=== PATIENT | male | born 1980 | race Caucasian/White ===

== ENCOUNTER 2018-08-10 08:24 | Inpatient (IN) ==
[2018-08-10] MEDS ORDERED: CeFAZolin Syr 3,000MG/30 ML 3,000 MG/30 ML SYRINGE IVPB ONE (08:40)
[2018-08-10] MEDS ORDERED: Ringers Solution, Lactated 1,000 ML IVC SCH (08:45)
--- NOTE | 2018-08-10 08:58 | Anesthesia Evaluation PreOp ---
Date of Encounter: 08/10/18 Time of Encounter: 09:00 - Past History Planned Operation: perc. 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 HX Other Medical History: GERD, Other (morbid obesity, BMI 53) Anesthesia History: No Prior Anesthetic Complications, Past Anesthesia (only prior surgery has been carpal tunnel surgery) Alcohol Use: none Drug use: none Medications and Allergies Citalopram [CeleXA] 20 mg PO DAILY 05/05/15 [History] Loratadine [Claritin] 10 mg PO DAILY #30 tablet 07/21/15 [Rx] hydroCHLOROthiazide [Hydrochlorothiazide] 25 mg PO DAILY #20 tablet 01/06/16 [Rx ] Simvastatin [Zocor] 40 mg PO DAILY 06/28/16 [History] Aspirin/Acetaminophen/Caffeine [Excedrin Migraine Caplet] 1 tab PO DAILY PRN 09/23/16 [History] Omeprazole [PriLOSEC] 20 mg PO DAILY 09/23/16 [History] Cephalexin [Keflex] 500 mg PO QID #40 capsule 04/13/17 [Rx] Sulfamethoxazole/Trimeth DS [Bactrim DS] 1 each PO BID #20 tablet 04/13/17 [Rx] Hyoscyamine SL [Levsin SL] 0.125 mg SL Q4HR #14 tab.subl 04/16/17 [Rx] Ondansetron ODT [Zofran ODT] 4 mg SL Q4HR #14 tab.rapdis 04/16/17 [Rx] Allergy/AdvReac Type Severity Reaction Status Date / Time lisinopril Allergy Swelling Verified 07/31/18 16:18 of Lip/Tongue/Throat - Meds/Allergy Pre-op Review Medications Reviewed: Yes Allergies Reviewed: Yes Beta Blockers on Current Med List: No Anesthesia Results - Imaging EKG: image reviewed (sinus rhythm) Anesthesia Exam Selected Entries 08/10/18 08:49 Temperature 99.7 F H Pulse Rate 86 Respiratory Rate 18 Blood Pressure 154/94 O2 Sat by Pulse Oximetry 96 Weight: 163 kg BMI 53 NPO (# of Hours): over 8 hours - HEENT Pupil (Motor): Pupils equal Mallampati: II Teeth: Normal Oral Opening: Greater than 3 - Cardiac Rhythm: Regular Murmur: None - Pulmonary Breath Sounds: bilateral Clear Respiratory Effort: Symmetrical Anesthesia Assess/Plan ASA Score: 3 Level of consciousness: Cooperative Anesthetic Plan: General Monitoring Plan: Standard Monitors Recovery Plan: PACU (Discussed GA, ET intubation. Agreed to proceed.)
[2018-08-10] MEDS ORDERED: Acetaminophen IV 1,000 MG/100 ML INFUS..BTL IVPB ONE (09:00)
--- NOTE | 2018-08-10 09:14 | History & Physical Report ---
Date of Encounter: 08/10/18 Time of Encounter: 09:13 24 Hour HP Update - Instructions Instructions: If the History and Physical is less than 30 days old and was completed prior to A.M. admission and or procedure and has NOT been updated on calendar day of procedure please complete this update prior to performing procedure. - Update Patient reports changes in Medical Condition: No Changes in examination, assessment, or condition: No Changes in Medication: No Preop tests/diagnostics Reviewed: Yes Surgery Remains Indicated: Yes Consent for Planned Operative Procedure(s) Verified: Yes - Pre-Operative Checklist Preoperative Checklist Indicated: Yes Prophylactic Antibiotic Ordered: Yes Home Medications Include Beta Katie: No Is VTE Prophylaxis Indicated?: Yes
[2018-08-10] MEDS ORDERED: *HR* Propofol 200 MG/20 ML VIAL IVP ONE ×2 (09:34→16:15)
[2018-08-10] MEDS ORDERED: *HR* FentaNYL (PF) 100 MCG/2 ML VIAL ONE ×2 (09:34→09:39)
[2018-08-10] MEDS ORDERED: *HR* Midazolam HCl 2 MG/2 ML VIAL ONE (09:34)
[2018-08-10] MEDS ORDERED: *HR* Rocuronium Bromide 50 MG/5 ML VIAL ONE ×4 (09:38→14:18)
[2018-08-10] MEDS ORDERED: Lidocaine -MPF 2% 2 ML VIAL ONE (09:38)
[2018-08-10] MEDS ORDERED: Ondansetron 4 MG/2 ML VIAL ONE ×2 (09:38→16:27)
[2018-08-10] MEDS ORDERED: Lidocaine 1% 20 ML MDV ONE (11:21)
[2018-08-10] MEDS ORDERED: *HR* HYDROMORPHONE 2 MG/ML VIAL ONE ×2 (12:52→15:44)
[2018-08-10] MEDS ORDERED: Mannitol 25% vial 12.5 GM/50 ML VIAL ONE ×2 (12:55→12:57)
[2018-08-10] MEDS ORDERED: Albumin Human 5% 25.0 GM/500 ML VIAL ONE (14:43)
[2018-08-10] MEDS ORDERED: EPHEDrine 50 MG/ML VIAL ONE (14:52)
[2018-08-10] MEDS ORDERED: Neostigmine Methylsulfate 3 MG/3 ML SYRINGE ONE (15:50)
--- NOTE | 2018-08-10 16:21 | Operative Note ---
Date of procedure: 08/10/18 Pre-op diagnosis: Left renal mass Post-op diagnosis: same Procedure: Left robotic partial nephrectomy Implants: 19-Bermudian Edmundo drain Agarwal catheter Complications: none Anesthesia: GETA Surgeon: Kane Briceno Was there an case management assistant present: Yes Milled Lumber Grader: Alexx Cruz Estimated blood loss (cc): 1,000 Specimen: left renal mass Condition: stable Disposition: PACU Procedure in Detail: Indications: Nilsa is a 38-year-old man who presents with a left renal mass. He elected to undergo a left robotic partial nephrectomy. He was informed of the risks of the procedure which include but are not limited to bleeding, infection, injury to other structures, need for further procedures, urine leak, bowel injury, need for complete nephrectomy, need for open conversion, and the risk of anesthesia. He is willing to proceed. Procedure After informed consent was obtained the patient was brought back to the operating room and placed in the supine position. A timeout was performed. Gen. anesthesia was then administered and an endotracheal tube was placed. Appropriate IV access and arterial lines were obtained. A Agarwal catheter was then placed. He was then placed in the flank position. His left side was up. All pressure points were padded. He was well secured to the table. He was then prepped and draped in the usual sterile fashion. We then marked out our incisions along the lateral border of the rectus abdominis muscle. Port sites were located at the costal margin extending down towards the left lower quadrant 4. An 8 mm incision was made at the site located superior and lateral to the umbilicus. The Veress needle was introduced. 2 clicks were heard. It passed the water drop test. Insufflation was then initiated. Pressures were low consecutively. The abdomen was insufflated. Once the pressure was up to 15, we inserted the 8 mm robotic portr. Entry was obtained into the abdomen. The bowel was surveyed below and there is no evidence of bowel injury. Robotic ports were then inserted superior and inferior to the camera port. A 12 mm port was placed for the case management assistant inferior to the umbilicus. The air seal device was used. The robot was docked. The bowel was reflected off the kidney along the white line of Toldt. The kidney was lifted anteriorly with the fourth arm. Dissection proceeded to the area of pulsation near the hilum. The artery was identified superior to the vein. This was dissected out carefully. The vein was identified as well. Attention was then turned to mobilize the kidney. The kidney was dissected out from the lateral sidewall outside of gerota's fascia. Once the kidney was mobilized and incision was made along Gerota's fascia until the kidney was seen. The mass was identified lateral and posteriorly on the kidney. I then turned my attention to the fat overlying the renal mass. This was dissected off the kidney. The kidney was mobilized within the Gerota's fat to expose the margin. The tumor was quite exophytic. The area of excision was scored out. I utilized a small amount of ICG to identify the normal parenchyma. Mannitol was then given. The renal artery was clamped using the bulldog. The tumor was excised sharply using cold scissors. There were 2 large venous sinuses which were encountered during the removal of the tumor which hemorrhaged significantly. Once the tumor was removed I utilized a 3-O V-LOC x 2 to close the venous sinuses. Hemostasis was then achieved along these vessels. I then closed the capsule to itself using 0 V-LOC suture in an interrupted fashion with the sliding clip renorrhaphy technique. Hemostasis was good. The bulldog clamp was removed. 38 minutes of warm ischemia time was noted. Once the bulldog clamp was removed and FloSeal was applied to the resection area. Hemostasis seemed adequate. T The kidney was then brought back into its normal anatomic location using O V-LOC suture in a running fashion to bring sure of his fascia back to itself. A 19 B[place]udian Edmundo drain was then placed. This was secured to the skin using a nylon suture. The specimen was removed in a specimen bag. The specimen was extracted through the assistance port after opening the skin and fascia slightly with electrocautery. All the ports were then removed. The fascia of the extraction site was closed in a [id number] fashion using an 0 Vicryl suture. The wounds were closed using 4-0 Monocryl suture. Local anesthetic was infiltrated into the wounds. The abdomen was then washed and dried and Dermabond was applied to the wounds. The patient was then awakened from general anesthesia and brought to recovery room in good condition. All sponge, needle, and instrument counts were correct.
[2018-08-10] MEDS ORDERED: *HR* HYDROmorphone (PF) 1 MG/ML SYRINGE IVP PRN (16:46)
[2018-08-10] MEDS ORDERED: *HR* Promethazine 25 MG/ML VIAL IVP PRN (16:47)
[2018-08-10] MEDS ORDERED: *HR* Promethazine 25 MG/ML VIAL ONE (16:49)
--- NOTE | 2018-08-10 17:23 | Anesthesia Evaluation Post Op ---
Date of Encounter: 08/10/18 Time of Encounter: 17:23 - Vital Signs Vital Signs: Last Vital Signs Temp 97.6 F 08/10/18 17:07 Pulse 103 08/10/18 17:07 Resp 18 08/10/18 17:07 BP 128/69 08/10/18 17:07 Pulse Ox 93 08/10/18 17:07 - Lungs Lungs: Clear Ascult./Percussion - Airway Airway: Non-obstructed - Cardiovascular Regular Rate - Mental Status Mental Status: Alert & Oriented, Answers Appropriately - Pain Pain Scale: 4 - Nausea Vomiting Nausea Vomiting: Not Present - Hydration Hydration: NPO - Discharge PostOp Status: Transfer Patient to floor
[2018-08-10] MEDS ORDERED: *HR* Dextrose 50 % in Water (Syg) 50 ML SYRINGE IVP PRN (18:09)
[2018-08-10] MEDS ORDERED: D5% in Water 1,000 ML IVC PRN (18:09)
[2018-08-10] MEDS ORDERED: OXYCODONE Oral CONC 10 MG/0.5 ML ORAL.SYG SL PRN (18:09)
[2018-08-10] MEDS ORDERED: Dextrose Gel 15 GM/37.5 ML TUBE PO PRN ×2 (18:09)
[2018-08-10] MEDS ORDERED: Naloxone 0.4 MG/ML INJ IVP PRN (18:09)
[2018-08-10] MEDS: 0.9 % Sodium Chloride 1,000 ML IVC SCH (18:37)
[2018-08-10] MEDS: Insulin LISPRO 300 UNITS/3 ML VIAL SQ SCH (18:53)
[2018-08-10] MEDS: Ondansetron 4 MG/2 ML VIAL IVP PRN (20:01)
[2018-08-10] MEDS: ceFAZolin sodium 3,000 MG in 0.9 % Sodium Chloride 100 ML IVPB SCH (20:49)
[2018-08-10] MEDS: *HR* OxyCODONE Immed Rel 5 MG TABLET PO PRN (23:58)
[2018-08-11] MEDS: 0.9 % Sodium Chloride 1,000 ML IVC SCH ×2 (02:58→10:55)
[2018-08-11] MEDS: Acetaminophen 325 MG TABLET PO PRN ×2 (03:03→20:44)
[2018-08-11] MEDS: ceFAZolin sodium 3,000 MG in 0.9 % Sodium Chloride 100 ML IVPB SCH (04:23)
--- NOTE | 2018-08-11 07:27 | Urology Progress Note ---
Date of Encounter: 08/11/18 Time of Encounter: 07:25 - Assessment and Plan (1) Renal mass, left Current Visit: Yes Status: Acute Assessment and plan: Postoperative day #1 status post left robotic partial nephrectomy. 1. Continue current pain management. 2. Incentive spirometry 10/h. 3. Continue with clear liquids. Await return of bowel function. 4. Continue LEE drain. Await lab results from this morning. 5. Discontinue Agarwal catheter. 6. PT/OT consultation. 7. Continue omeprazole for GI prophylaxis. We will hold off on subcutaneous heparin secondary to bleeding risk. Continue SCDs. 8. Anticipate remaining in hospital today. We will change status to observation. Progress Note Narrative: Doing well today. Pain is controlled. He is having some discomfort in the ri ght hip which is likely associated with positioning. Mild low-grade temperatures. He is doing incentive spirometry. He is tolerating water intake. He denies flatus. Objective Initial Vital Signs Temp Pulse Resp BP Pulse Ox 99.1 F 86 18 154/93 96 08/10/18 08:49 08/10/18 08:49 08/10/18 08:49 08/10/18 08:49 08/10/18 08:49 - General physical appearance Present: well developed, well nourished, no distress - Respiratory Present: normal respiratory effort - Abdomen Present: soft (Appropriately tender. Incisions are clean, dry, intact. LEE was sanguinous drainage.) - Genitourinary Present: normal penis with no external lesions (Agarawl catheter in position with clear urine.) Urine Appearance: Present: Clear - Integumentary Present: no rash - Musculoskeletal Present: normal posture, other (No ecchymosis noted along the right hip.) Consult Discharge Plan - Plan Referrals: Meri Cantu [Primary Care Provider] -
[2018-08-11 07:29] LABS: Basophils % 0.2 %; Hematocrit 34.1 % (37.5-50.1); Immature Granulocytes % 0.3 % (0-4); Lymphocytes % 17.8 %; Mean Corpuscular HGB Conc 32.3 g/dL (31.6-35.5); Mean Corpuscular Hemoglobin 27.7 pg (28.0-33.3); Mean Corpuscular Volume 85.9 fL (83.0-100.0); Mean Platelet Volume 9.5 fL (9.4-12.4); Monocytes % 9.2 %; Neutrophils # 8.1 K/mcL (1.6-8.9); Platelet Count 271 K/mcL (140-400); Red Blood Count 3.97 M/mcL (4.19-5.50); Red Cell Distribution Width 14.8 % (11.5-14.5); Segmented Neutrophils % 72.5 %
[2018-08-11] MEDS: Insulin LISPRO 300 UNITS/3 ML VIAL SQ SCH ×3 (07:39→17:04)
[2018-08-11 07:52] LABS: BUN/Creatinine Ratio 14 (6-26); Blood Urea Nitrogen 12 mg/dL (6-20); Calcium 8.7 mg/dL (8.6-10.3); Carbon Dioxide 28 mEq/L (23-29); Chloride 106 mEq/L (98-107); Glucose 133 mg/dL (70-105); Osmolality,Calculated 292 (280-300); Potassium 3.8 mEq/L (3.5-5.1); Sodium 140 mEq/L (136-145); eGFR For Non-African Americans > 60 (> 60)
[2018-08-11] MEDS: Loratadine 10 MG TABLET PO SCH (08:32)
[2018-08-11] MEDS: Losartan/HCTZ 50-12.5 TABLET PO SCH (08:32)
[2018-08-11] MEDS: *HR* OxyCODONE Immed Rel 5 MG TABLET PO PRN (10:55)
[2018-08-11] MEDS: Ondansetron 4 MG/2 ML VIAL IVP PRN (20:43)
[2018-08-12] MEDS: Acetaminophen 325 MG TABLET PO PRN ×3 (02:54→19:06)
[2018-08-12 07:05] LABS: Hematocrit 31.9 % (37.5-50.1); Hemoglobin 10.3 g/dL (12.9-16.9); Mean Corpuscular HGB Conc 32.3 g/dL (31.6-35.5); Mean Corpuscular Hemoglobin 28.1 pg (28.0-33.3); Mean Corpuscular Volume 86.9 fL (83.0-100.0); Mean Platelet Volume 9.6 fL (9.4-12.4); Platelet Count 222 K/mcL (140-400); Red Blood Count 3.67 M/mcL (4.19-5.50); Red Cell Distribution Width 14.9 % (11.5-14.5)
--- NOTE | 2018-08-12 07:07 | Urology Progress Note ---
Date of Encounter: 08/12/18 Time of Encounter: 07:05 - Assessment and Plan (1) Renal mass, left Current Visit: Yes Status: Acute Assessment and plan: 38-year-old man status post left robotic partial nephrectomy. Postoperative day #2. Patient had a low-grade temperature yesterday evening which is likely due to atelectasis. 1. Continue incentive spirometry and ambulation. 2. Await lab results this morning. 3. DC IV fluids. 4. Continue SCDs and resolved for prophylaxis. We will hold off on subcutaneous heparin secondary to the risk of bleeding. 5. Continue LEE for now. We will monitor its outputs. Drainage seems to be decreasing overnight. 6. Regular diet. 7. Will keep patient in the hospital today because of low-grade temperature. Progress Note Narrative: Postoperative day #2 status post left robotic partial nephrectomy. Patient had a temperature yesterday evening. He is tolerating diet. Pain is well- controlled. He is ambulating. Drain output was 290 yesterday. Objective Initial Vital Signs Temp Pulse Resp BP Pulse Ox 99.1 F 86 18 154/93 96 08/10/18 08:49 08/10/18 08:49 08/10/18 08:49 08/10/18 08:49 08/10/18 08:49 - General physical appearance Present: well developed, well nourished, no distress - Respiratory Present: normal respiratory effort - Abdomen Present: soft (Appropriately tender, incisions are clean, dry, and intact. LEE was sanguineous drainage. Dressings changed today.) - Genitourinary Present: normal penis with no external lesions - Integumentary Present: no rash - Musculoskeletal Present: normal posture - Labs 08/11/18 06:50 08/11/18 06:50 Diabetes panel 08/11/18 Range/Units 06:50 Sodium 140 (136-145) mEq/L Potassium 3.8 (3.5-5.1) mEq/L Chloride 106 (98-107) mEq/L Carbon Dioxide 28 (23-29) mEq/L BUN 12 (6-20) mg/dL Creatinine 0.86 (0.70-1.30) mg/dL Glucose 133 H (70-105) mg/dL Calcium 8.7 (8.6-10.3) mg/dL Calcium panel 08/11/18 Range/Units 06:50 Calcium 8.7 (8.6-10.3) mg/dL Pituitary panel 08/11/18 Range/Units 06:50 Sodium 140 (136-145) mEq/L Potassium 3.8 (3.5-5.1) mEq/L Chloride 106 (98-107) mEq/L Carbon Dioxide 28 (23-29) mEq/L BUN 12 (6-20) mg/dL Creatinine 0.86 (0.70-1.30) mg/dL Glucose 133 H (70-105) mg/dL Calcium 8.7 (8.6-10.3) mg/dL Adrenal panel 08/11/18 Range/Units 06:50 Sodium 140 (136-145) mEq/L Potassium 3.8 (3.5-5.1) mEq/L Chloride 106 (98-107) mEq/L Carbon Dioxide 28 (23-29) mEq/L BUN 12 (6-20) mg/dL Creatinine 0.86 (0.70-1.30) mg/dL Glucose 133 H (70-105) mg/dL Calcium 8.7 (8.6-10.3) mg/dL Consult Discharge Plan - Plan Referrals: Meri Cantu [Primary Care Provider] - (Unable to make follow up appointmet. Please call and schedule hospital follow up appointment for 7-10 days from date of discharge. )
[2018-08-12 07:23] LABS: BUN/Creatinine Ratio 13 (6-26); Blood Urea Nitrogen 10 mg/dL (6-20); Calcium 8.5 mg/dL (8.6-10.3); Carbon Dioxide 29 mEq/L (23-29); Chloride 106 mEq/L (98-107); Glucose 110 mg/dL (70-105); Osmolality,Calculated 292 (280-300); Potassium 3.5 mEq/L (3.5-5.1); Sodium 141 mEq/L (136-145); eGFR For Non-African Americans > 60 (> 60)
[2018-08-12] MEDS: *HR* OxyCODONE Immed Rel 5 MG TABLET PO PRN ×2 (09:00→21:19)
[2018-08-12] MEDS: Losartan/HCTZ 50-12.5 TABLET PO SCH (09:00)
[2018-08-12] MEDS: Loratadine 10 MG TABLET PO SCH (09:00)
[2018-08-12] MEDS: 0.9 % Sodium Chloride 1,000 ML IVC SCH ×2 (15:14→15:17)
[2018-08-13 06:27] LABS: Hematocrit 31.1 % (37.5-50.1); Hemoglobin 10.2 g/dL (12.9-16.9); Mean Corpuscular HGB Conc 32.8 g/dL (31.6-35.5); Mean Corpuscular Volume 85.4 fL (83.0-100.0); Mean Platelet Volume 9.4 fL (9.4-12.4); Platelet Count 231 K/mcL (140-400); Red Blood Count 3.64 M/mcL (4.19-5.50); Red Cell Distribution Width 14.7 % (11.5-14.5)
[2018-08-13 07:20] LABS: BUN/Creatinine Ratio 13 (6-26); Blood Urea Nitrogen 9 mg/dL (6-20); Calcium 8.6 mg/dL (8.6-10.3); Carbon Dioxide 30 mEq/L (23-29); Chloride 102 mEq/L (98-107); Glucose 105 mg/dL (70-105); Osmolality,Calculated 289 (280-300); Potassium 3.3 mEq/L (3.5-5.1); Sodium 140 mEq/L (136-145); eGFR For Non-African Americans > 60 (> 60)
--- NOTE | 2018-08-13 08:12 | Urology Progress Note ---
<Lara Kwan N - Last Filed: 08/13/18 09:57> Date of Encounter: 08/13/18 Time of Encounter: 07:45 - Assessment and Plan (1) Renal mass, left Current Visit: Yes Status: Acute Assessment and plan: Patient is a 38-year-old male who is 3 days status post left robotic partial nephrectomy. Vital signs are currently stable and afebrile, however, patient experienced intermittent fevers throughout the night with MAXIMUM TEMPERATURE 102.3. White blood cell count and H&H are stable. LEE output is decreasing and will likely be removed today. We will plan to order a urine culture, CT chest/abd/pelvis with contrast, and request hospitalist evaluation. Progress Note Narrative: POD #3. Patient seen and examined lying in bed in no apparent distress. Patient states he experienced fever and chills overnight. Patient states pain is well-controlled. Patient is tolerating normal diet without nausea or vomiting. Patient is voiding without difficulty. Objective Initial Vital Signs Temp Pulse Resp BP Pulse Ox 99.1 F 86 18 154/93 96 08/10/18 08:49 08/10/18 08:49 08/10/18 08:49 08/10/18 08:49 08/10/18 08:49 - General physical appearance Present: no distress, no pain, obese - Respiratory Present: normal expansion, normal respiratory effort - Abdomen Present: soft, tender, wound (Primary incision sites clean, dry, intact. Drain site clean, dry, intact with scant amount of bloody drainage in LEE) - Integumentary Present: no rash, no abnormal pigmentation - Psychiatric Present: oriented to time, oriented to person, oriented to place, speech is normal, memory intact - Labs 08/13/18 05:55 08/13/18 05:55 Diabetes panel 08/13/18 Range/Units 05:55 Sodium 140 (136-145) mEq/L Potassium 3.3 L (3.5-5.1) mEq/L Chloride 102 (98-107) mEq/L Carbon Dioxide 30 H (23-29) mEq/L BUN 9 (6-20) mg/dL Creatinine 0.68 L (0.70-1.30) mg/dL Glucose 105 (70-105) mg/dL Calcium 8.6 (8.6-10.3) mg/dL Calcium panel 08/13/18 Range/Units 05:55 Calcium 8.6 (8.6-10.3) mg/dL Pituitary panel 08/13/18 Range/Units 05:55 Sodium 140 (136-145) mEq/L Potassium 3.3 L (3.5-5.1) mEq/L Chloride 102 (98-107) mEq/L Carbon Dioxide 30 H (23-29) mEq/L BUN 9 (6-20) mg/dL Creatinine 0.68 L (0.70-1.30) mg/dL Glucose 105 (70-105) mg/dL Calcium 8.6 (8.6-10.3) mg/dL Adrenal panel 08/13/18 Range/Units 05:55 Sodium 140 (136-145) mEq/L Potassium 3.3 L (3.5-5.1) mEq/L Chloride 102 (98-107) mEq/L Carbon Dioxide 30 H (23-29) mEq/L BUN 9 (6-20) mg/dL Creatinine 0.68 L (0.70-1.30) mg/dL Glucose 105 (70-105) mg/dL Calcium 8.6 (8.6-10.3) mg/dL Consult Discharge Plan - Plan Referrals: Meri Cantu [Primary Care Provider] - (Unable to make follow up appointmet. Please call and schedule hospital follow up appointment for 7-10 days from date of discharge. ) <Kane Briceno - Last Filed: 08/13/18 10:06> Date of Encounter: 08/13/18 - Assessment and Plan (1) Renal mass, left Current Visit: Yes Status: Acute Assessment and plan: The patient was seen and examined with the physician's animal assistant. I agree with the assessment and plan. He developed a fever yesterday to 102 degrees. I will order a CT scan of the chest and pelvis to evaluate for any pneumonia or intra- abdominal abscess. It is unlikely abscess would have formed this early out, but I think it is reasonable to further assess. We will order blood cultures. Urine culture is pending. I will empirically start Zosyn. A hospitalist consult has been placed. He is otherwise hemodynamically stable. Continue inpatient stay at this time. (2) Postoperative fever Current Visit: Yes Status: Acute Objective Initial Vital Signs Temp Pulse Resp BP Pulse Ox 99.1 F 86 18 154/93 96 08/10/18 08:49 08/10/18 08:49 08/10/18 08:49 08/10/18 08:49 08/10/18 08:49 - Labs 08/13/18 05:55 08/13/18 05:55 Diabetes panel 08/13/18 Range/Units 05:55 Sodium 140 (136-145) mEq/L Potassium 3.3 L (3.5-5.1) mEq/L Chloride 102 (98-107) mEq/L Carbon Dioxide 30 H (23-29) mEq/L BUN 9 (6-20) mg/dL Creatinine 0.68 L (0.70-1.30) mg/dL Glucose 105 (70-105) mg/dL Calcium 8.6 (8.6-10.3) mg/dL Calcium panel 08/13/18 Range/Units 05:55 Calcium 8.6 (8.6-10.3) mg/dL Pituitary panel 08/13/18 Range/Units 05:55 Sodium 140 (136-145) mEq/L Potassium 3.3 L (3.5-5.1) mEq/L Chloride 102 (98-107) mEq/L Carbon Dioxide 30 H (23-29) mEq/L BUN 9 (6-20) mg/dL Creatinine 0.68 L (0.70-1.30) mg/dL Glucose 105 (70-105) mg/dL Calcium 8.6 (8.6-10.3) mg/dL Adrenal panel 08/13/18 Range/Units 05:55 Sodium 140 (136-145) mEq/L Potassium 3.3 L (3.5-5.1) mEq/L Chloride 102 (98-107) mEq/L Carbon Dioxide 30 H (23-29) mEq/L BUN 9 (6-20) mg/dL Creatinine 0.68 L (0.70-1.30) mg/dL Glucose 105 (70-105) mg/dL Calcium 8.6 (8.6-10.3) mg/dL
[2018-08-13] MEDS: Loratadine 10 MG TABLET PO SCH (09:08)
[2018-08-13] MEDS: Ondansetron 4 MG/2 ML VIAL IVP PRN ×2 (09:08→18:12)
[2018-08-13] MEDS: Losartan/HCTZ 50-12.5 TABLET PO SCH (09:08)
[2018-08-13] MEDS ORDERED: Isovue-370 500 ML INFUS..BTL IV ONE (10:00)
[2018-08-13] MEDS: Piperacillin/Tazobactam 3.375 GM in 0.9 % Sodium Chloride Mini Bag 100 ML IVPB SCH ×2 (11:27→18:23)
--- NOTE | 2018-08-13 11:30 | Internal Med History&Physical ---
Date of Encounter: 08/13/18 Time of Encounter: 11:15 Internal Medicine - H&P: HPI Chief complaint: fever Admitted From: Home Plans for Post Hospital Care: Home History of present illness: Mr. Mcneill is a 38 year old male who was admitted on August 10 for left kidney mass resection. Patient developed a fever postoperative day 1 at 101, then POD 2, he spiked to 102 associated with chills. He complains of some productive cough for over last few days, lung sounds clear. Chest x-ray is negative. Denies chest pain and dyspnea, he is on room air. He denies abdominal pain nausea vomiting diarrhea or constipation. Denies painful frequency urination. Surgical wound is clean, pain improved. Primary team will do the CT chest and abdomen. He was placed on Zosyn which I agree. We will consult a full fever workup. 1. fever post-op day 2, BC UA ordered, CXR is negative, pending CT chest, abdomen CT scan, will check duplex to rule out DVT, patient is MO, post-op. Past Med Surg Social Fam HX - Past Medical History Medical history: GERD, hyperlipidemia, hypertension, kidney stones, other Additional medical history: morbid obesity. esticular nodule. knot under right arm. anxiety. hypercholesterolemia Psychiatric history: anxiety - Past Surgical History Surgical History: orthopedic, other, other Additional surgical history: left under arm lympoma removed - Social History Smoking Status: Never smoker Smokeless Tobacco Status: No Alcohol use: none Drug use: none - Family History Father Living Status: Hx Family Cardiac Disorders: Yes Hx Family Endocrine Disorder: Yes (DM) Hx Family Neuromuscular Disorders: Yes (parkinson's) Mother Family Member Ethnicity: Non- Living Status: Still Living Hx Family Cardiac Disorders: Yes (CABG, CHF) Internal Medicine - H&P: Meds Cholecalciferol (D-3) [Vitamin D] 1,000 unit PO DAILY 08/10/18 [History] Citalopram [CeleXA] 20 mg PO DAILY 08/10/18 [History] Loratadine [Allergy Relief] 10 mg PO DAILY 08/10/18 [History] Losartan/HCTZ [Hyzaar 50-12.5 Tablet] 1 each PO DAILY 08/10/18 [History] Omeprazole [PriLOSEC] 20 mg PO DAILY 08/10/18 [History] Simvastatin [Zocor] 40 mg PO HS 08/10/18 [History] Allergy/AdvReac Type Severity Reaction Status Date / Time lisinopril Allergy Swelling Verified 08/10/18 09:34 of Lip/Tongue/Throat All Systems PM: A 10-system review of systems was performed and is negative for pertinent findin gs except as documented above in the HPI. - Constitutional Vitals: Temp Pulse Resp BP Pulse Ox 99.6 F 95 19 162/79 91 08/13/18 07:28 08/13/18 07:28 08/13/18 07:28 08/13/18 07:28 08/13/18 07:28 General appearance: Present: A&O X 3, no acute distress, obese Exam: CONSTITUTIONAL: Patient appears as an age appropriate male well developed, in no acute distress. EYES Clear sclerae, bilateral pupils are equal, reactive to light and accommodation. Extraocular movements are intact RESPIRATORY: No accessory muscle use, bilateral clear to auscultation, no wheezing, no crackles/rales. CARDIOVASCULAR: Regular heart rate, normal S1 and S2, no murmurs GASTROINTESTINAL: bowel sounds present, soft, no tenderness. No hepatosplenomegaly. No bilateral CVA tenderness MUSCULOSKELETAL: Joints in normal range of motion, no clubbing, no edema, no cyanosis. Bilateral peripheral pulses 2+ LYMPHATIC no lymphadenopathy in neck, groin and axilla bilaterally, no thyromegaly. NEUROLOGIC: CN II to XII are grossly intact, no focal neurological deficit. Deep tendon reflexes 2+ bilaterally. Normal light touch sensation to upper and lower extremity PSYCHIATRIC: Oriented x3, with good insight, mood is euthymic. No hallucinations or delusions. SKIN: Skin warm and dry, no rashes, no open wound. Internal Med - H&P Results - Labs CBC & Chem 7: 08/13/18 05:55 08/13/18 05:55 Labs: Short CBC 08/13/18 Range/Units 05:55 WBC 11.2 H (4.3-11.1) K/mcL Hgb 10.2 L (12.9-16.9) g/dL Hct 31.1 L (37.5-50.1) % Plt Count 231 (140-400) K/mcL BMP 08/13/18 05:55 Sodium 140 Potassium 3.3 L Chloride 102 Carbon Dioxide 30 H BUN 9 Creatinine 0.68 L Glucose 105 Calcium 8.6 - Impressions ITS Impressions Chest X-Ray 08/13/18 07:43 IMPRESSION: Negative chest. D/ / Ni Villeda MD / Ni Villeda MD Interpreting Provider: Ni Villeda MD - Assessment and plan (1) Fever Current Visit: Yes Status: Acute Assessment and plan: fever 101-102, post-op day 2, 3, CXR is negative infectious work up is in process, BC UA ordered pending CT chest and andomen, will do duplex to r/o DVT incentive spirometry Qualifiers: Fever type: unspecified Qualified Code(s): R50.9 - Fever, unspecified (2) Morbid obesity Current Visit: Yes Status: Acute (3) Renal mass, left Current Visit: Yes Status: Acute Assessment and plan: POD days 3 per primary team - Time Spent With Patient Total time spent is greater than 50% in coordination of care (as documented) at patient's floor/unit and/or counseling patient: 25 - 35 minutes
[2018-08-13 12:28] LABS: Bilirubin,Urine Negative (Negative); Blood,Urine Negative (Negative); Clarity,Urine Clear (Clear); Color,Urine Yellow (Yellow); Glucose,Urine (UA) Normal (Normal); Ketones,Urine Negative (Negative); Leukocyte Esterase,Urine Negative (Negative); Nitrite,Urine Negative (Negative); PH,Urine 7.5 pH Units (5.0-8.0); Protein,Urine Negative (Neg-Trace); Specific Gravity,Urine 1.013 (1.010-1.025)
[2018-08-13] MEDS ORDERED: Bisacodyl 10 MG RECTAL SUPPOSITORY RC ONE (17:30)
[2018-08-13] MEDS: Acetaminophen 325 MG TABLET PO PRN (20:30)
[2018-08-13] MEDS: 0.9 % Sodium Chloride 1,000 ML IVC SCH (21:02)
[2018-08-13] MEDS ORDERED: *HR* Promethazine 25 MG/ML VIAL IVP ONE (21:17)
[2018-08-14] MEDS: Piperacillin/Tazobactam 3.375 GM in 0.9 % Sodium Chloride Mini Bag 100 ML IVPB SCH ×4 (00:59→23:01)
[2018-08-14] MEDS: Ondansetron 4 MG/2 ML VIAL IVP PRN ×2 (04:11→09:24)
--- NOTE | 2018-08-14 08:39 | Urology Progress Note ---
<Lara Kwan N - Last Filed: 08/14/18 08:36> Date of Encounter: 08/14/18 Time of Encounter: 07:55 - Assessment and Plan (1) Renal mass, left Current Visit: Yes Status: Acute Assessment and plan: Patient is a 38-year-old male who presents 4 days postoperatively from a left robotic-assisted partial nephrectomy for a left renal mass. Pathology is still pending. Vital signs are currently stable and afebrile. Patient is aware discharge may not be considered until he is 24 hours afebrile. Progress Note Subjective: no new complaints Narrative: POD #4. Patient seen and examined lying in bed in no apparent distress. Patient states he is feeling somewhat better and is inquiring about discharge. Pain is currently well controlled. Patient is tolerating normal diet without nausea or vomiting. Patient is voiding without difficulty. Patient is passing flatus and has experienced two bowel movements. Patient states he is ambulating in the hallway with minimal assistance. Currently, patient denies fever, chills, chest pain, dyspnea, calf pain. Objective Initial Vital Signs Temp Pulse Resp BP Pulse Ox 99.1 F 86 18 154/93 96 08/10/18 08:49 08/10/18 08:49 08/10/18 08:49 08/10/18 08:49 08/10/18 08:49 - General physical appearance Present: well developed, no distress, obese - Respiratory Present: normal expansion, normal respiratory effort - Abdomen Present: soft, non tender, wound (Primary incisions clean, dry, intact.) - Integumentary Present: no rash, no abnormal pigmentation - Musculoskeletal Present: normal posture - Psychiatric Present: oriented to time, oriented to person, oriented to place, speech is normal, memory intact - Labs 08/13/18 05:55 08/13/18 05:55 Consult Discharge Plan - Plan Referrals: Meri Cantu [Primary Care Provider] - (Unable to make follow up appointmet. Please call and schedule hospital follow up appointment for 7-10 days from date of discharge. ) <Kane Briceno W - Last Filed: 08/14/18 09:02> Date of Encounter: 08/14/18 - Assessment and Plan (1) Renal mass, left Current Visit: Yes Status: Acute Assessment and plan: The patient was seen and examined with the physician's marketing assistant. I agree with the assessment and plan. Patient continues with fevers. I reviewed CT scan of the abdomen and pelvis, and chest. No concerning intra-abdominal abscesses noted. The lungs looked otherwise okay. I appreciate internal medicine support. Continue Zosyn for now. We will follow his fever curve. Blood and urine cultures are pending. (2) Postoperative fever Current Visit: Yes Status: Acute Objective Initial Vital Signs Temp Pulse Resp BP Pulse Ox 99.1 F 86 18 154/93 96 08/10/18 08:49 08/10/18 08:49 08/10/18 08:49 08/10/18 08:49 08/10/18 08:49 - Labs 08/13/18 05:55 08/13/18 05:55
[2018-08-14] MEDS: Loratadine 10 MG TABLET PO SCH (09:24)
[2018-08-14] MEDS: Losartan/HCTZ 50-12.5 TABLET PO SCH (09:24)
--- NOTE | 2018-08-14 15:26 | Internal Med Progress Note ---
Hospitalist Progress Note - Encounter Date of Encounter: 08/14/18 Time of Encounter: 15:23 - Exam Vitals: Temp Pulse Resp BP Pulse Ox 99.8 F H 93 16 140/80 94 08/14/18 15:20 08/14/18 15:20 08/14/18 15:20 08/14/18 15:20 08/14/18 15:20 Exam: CONSTITUTIONAL: Patient appears as an age appropriate male well developed, in no acute distress. EYES Clear sclerae, bilateral pupils are equal, reactive to light and accommodation. Extraocular movements are intact RESPIRATORY: No accessory muscle use, bilateral clear to auscultation, no wheezing, no crackles/rales. CARDIOVASCULAR: Regular heart rate, normal S1 and S2, no murmurs GASTROINTESTINAL: bowel sounds present, soft, no tenderness. No hepatosplenomega ly. No bilateral CVA tenderness MUSCULOSKELETAL: Joints in normal range of motion, no clubbing, no edema, no cyanosis. Bilateral peripheral pulses 2+ LYMPHATIC no lymphadenopathy in neck, groin and axilla bilaterally, no thyromegaly. NEUROLOGIC: CN II to XII are grossly intact, no focal neurological deficit. Deep tendon reflexes 2+ bilaterally. Normal light touch sensation to upper and lower extremity PSYCHIATRIC: Oriented x3, with good insight, mood is euthymic. No hallucinations or delusions. SKIN: Skin warm and dry, no rashes, no open wound. During patient examination he stated that he still has some chills as well as feeling nauseous. This is his 4th day post operative. Pathology sample result is still pending. Patient has been informed that he has to be 24hrs post fibrile prior to discharge. - Time Spent with Patient Total time spent is greater than 50% in coordination of care (as documented) at patient's floor/unit and/or counseling patient: Internal Medicine: Result - Labs CBC & Chem 7: 08/13/18 05:55 08/13/18 05:55 Consult Discharge Plan - Plan Referrals: Meri Cantu [Primary Care Provider] - 08/25/18 11:40 am (Unable to make follow up appointmet. Please call and schedule hospital follow up appointment for 7-10 days from date of discharge. )
[2018-08-14] MEDS: Acetaminophen 325 MG TABLET PO PRN ×2 (15:53→23:00)
[2018-08-14] MEDS: 0.9 % Sodium Chloride 1,000 ML IVC SCH (22:04)
[2018-08-15] MEDS: Acetaminophen 325 MG TABLET PO PRN (05:53)
[2018-08-15 08:04] VITALS: BP 137/85
[2018-08-15] MEDS: Loratadine 10 MG TABLET PO SCH (08:07)
[2018-08-15] MEDS: Losartan/HCTZ 50-12.5 TABLET PO SCH (08:07)
[2018-08-15] MEDS: Piperacillin/Tazobactam 3.375 GM in 0.9 % Sodium Chloride Mini Bag 100 ML IVPB SCH (08:11)
--- NOTE | 2018-08-15 09:39 | Discharge Summary ---
Orders not resulted at time of discharge: Pending orders 08/13/18 10:33 Culture,Blood [BC] Routine Date of Encounter: 08/15/18 Time of Encounter: 09:39 - Discharge Diagnosis (1) Renal mass, left Priority: Primary Status: Acute (2) Postoperative fever Priority: Secondary Status: Acute (3) Renal cancer Priority: Secondary Status: Acute Qualifiers: Laterality: left Qualified Code(s): C64.2 - Malignant neoplasm of left kidney, except renal pelvis (4) Urinary tract infection Priority: Secondary Status: Acute Qualifiers: Urinary tract infection type: acute cystitis Hematuria presence: without hematuria Qualified Code(s): N30.00 - Acute cystitis without hematuria - Hospital Course Hospital course: Mr. Mcneill is a 38 year old male who presented with a left renal mass. On 08/10/2018 he underwent a left robotic partial nephrectomy. Some large venous sinuses were encountered and there was a 1000 mL blood loss. After surgery his drain outputs were around 300 mL per day. Eventually, the drain output improved. He did develop a fever. Workup included a CT scan of the chest, abdomen, and pelvis. Blood and urine cultures were obtained. His urine culture grew out Proteus. He was treated with Zosyn. Eventually he became afebrile. He was discharged home on a course of levofloxacin. 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 Margins were negative. - Time Spent with Patient Total time spent providing and/or coordinating discharge services: Less than 30 minutes Labs on day of discharge: Preliminary micro results at discharge 08/13/18 10:33 Blood Culture - Preliminary Peripheral Venipuncture Culture is incubating and being continuously monitored for growth. Final report to follow. 08/13/18 10:28 Blood Culture - Preliminary Peripheral Venipuncture Culture is incubating and being continuously monitored for growth. Final report to follow. - Impressions ITS Impressions Chest X-Ray 08/13/18 07:43 IMPRESSION: Negative chest. D/ / Ni Villeda MD / Ni Villeda MD Interpreting Provider: Ni Villeda MD Abdomen/Pelvis CT 08/13/18 13:00 IMPRESSION: 1. Postsurgical changes around the left kidney, status tumor removal. A residual nodular density can be seen in the lower pole of the left kidney which measures 2.3 x 2.7 cm. 2. Inflammatory changes, some fluid and air bubble seen around the left kidney which are likely postoperative but no evidence of abscess. There is evidence of small amount of free air as well as some peritoneal bleeding which are likely postsurgical as well. 3. Left subcutaneous soft tissue changes with inflammation and air bubbles but no evidence of a well-formed abscess. 4. Right nephrolithiasis. No evidence of right obstructive uropathy. A small 2 mm stone seen in the urinary bladder. 5. Redemonstration of fatty infiltration of the liver. D/ / 08/13/2018 14:19:52 Eve Colbert MD / Roxanna Navarrete Interpreting Provider: Eve Colbert MD Chest CT 08/13/18 13:00 IMPRESSION: 1. No focal airspace consolidation. Bilateral scattered areas of subsegmental atelectasis. 2. Scattered foci of pneumoperitoneum likely postoperative in nature. 3. Few incidental/chronic findings as above including hepatic fatty infiltration. D/ / Ni Villeda MD / Ni Villeda MD Interpreting Provider: Ni Villeda MD - Discharge Medications Prescriptions: OxyCODONE/APAP 5/325 [Percocet 5/325 MG] 1 each PO Q4HR PRN 5 Days #20 tablet PRN Reason: Pain Docusate [Colace] 100 mg PO BID #60 capsule Levofloxacin [Levaquin] 750 mg PO DAILY #10 tablet Home Medications: Cholecalciferol (D-3) [Vitamin D] 1,000 unit PO DAILY 08/10/18 [History] Citalopram [CeleXA] 20 mg PO DAILY 08/10/18 [History] Loratadine [Allergy Relief] 10 mg PO DAILY 08/10/18 [History] Losartan/HCTZ [Hyzaar 50-12.5 Tablet] 1 each PO DAILY 08/10/18 [History] Omeprazole [PriLOSEC] 20 mg PO DAILY 08/10/18 [History] Simvastatin [Zocor] 40 mg PO HS 08/10/18 [History] Docusate [Colace] 100 mg PO BID #60 capsule 08/15/18 [Rx] Levofloxacin [Levaquin] 750 mg PO DAILY #10 tablet 08/15/18 [Rx] OxyCODONE/APAP 5/325 [Percocet 5/325 MG] 1 each PO Q4HR PRN 5 Days #20 tablet 08/15/18 [Rx] Allergies/Adverse Reactions: Allergy/AdvReac Type Severity Reaction Status Date / Time lisinopril Allergy Swelling Verified 08/10/18 09:34 of Lip/Tongue/Throat Date of admission: 08/13/18 17:30 Primary care physician: Meri Cantu Consults: 08/11/18 07:28 Consult to Physical Therapy [CONS] Routine Comment: Evaluate, develop and implement POC Reason for Consult: Assist with ambulation and right hip mobility after surgery Does patient have active BEDREST order?: No Is patient medically & hemodynamically stable?: Yes Patient assessed for mobility or mobilized this visit?: No 08/13/18 08:17 Consult to Hospitalist [CONS] Routine Consulting Provider: [facility] Reason for Consult: postoperative fever, medical management Time Notified: 08:20 Call Completed: Yes Discharging clinician: Kane Briceno Anticipated date of discharge: 08/15/18 Exam Initial Vital Signs Temp Pulse Resp BP Pulse Ox 99.1 F 86 18 154/93 96 08/10/18 08:49 08/10/18 08:49 08/10/18 08:49 08/10/18 08:49 08/10/18 08:49 - General physical appearance Present: well developed, well nourished, no distress - Eyes Absent: icteric - ENT Present: normal nares - Neck Present: trachea midline - Respiratory Present: normal respiratory effort - Cardiovascular Cardiovascular exam IM: RRR - Abdomen Abdomen: Present: soft (incisions are appropriately tender, clean, dry, and intact. No erythema) - Neurologic Present: normal coordination - Musculoskeletal Present: normal gait - Patient Status Disposition: Home, Self-Care Condition: Good Functional capacity at discharge: independent ambulation Overall status at discharge: patient is progressing back to baseline - Discharge Instructions Follow Up With: Meri Cantu [Primary Care Provider] - 08/25/18 11:40 am (Unable to make follow up appointmet. Please call and schedule hospital follow up appointment for 7-10 days from date of discharge. ) Kane Briceno MD [Partnered Physician] - (Prior to 08/31/2018.) Additional Instructions: 1. No heavy lifting greater than 20 pounds x2 weeks. 2. No tub baths x2 weeks. 3. May shower tomorrow. 4. He should follow up in 2 weeks for postoperative check. 5. He should return for any fevers, chills, nausea, vomiting, or significant swelling/ecchymosis. - Diet and Activity Activity: increase activity as tolerated Diet: advance to your usual diet
== END 2018-08-15 14:20 | disposition home or self-care (01) | DRG 657 ==
LOC: SAMDAY 08:24 → 3BNU 08:24 → SUATTDRO 08-11 11:28
PROVIDERS: ADMIT Urology; ATTEND Internal Medicine